=== PATIENT | male | born 1990 | race Hispanic/Latino ===

== ENCOUNTER → 2023-07-27 08:38 | Outpatient (REF) | payer OTHER, SELFPAY ==
[2023-07-27 09:53] LABS: ALT (SGPT) 49 U/L (0-50); AST (SGOT) 32 U/L (17-59); Albumin 4.4 g/dl (3.5-5.0); Alkaline Phosphatase 105 U/L (38-126); Blood Urea Nitrogen 16 mg/dl (9-20); Calcium 9.6 mg/dl (8.4-10.2); Carbon Dioxide 27 mmol/L (22-30); Chloride 102 mmol/L (98-107); Glucose 161 mg/dl (70-99); Potassium 4.2 mmol/L (3.5-5.1); Sodium 139 mmol/L (135-145); Total Bilirubin 0.7 mg/dl (0.2-1.3); Total Protein 7.3 g/dl (6.3-8.2); eGFR > 60.00
[2023-07-27 10:25] LABS: Microalbumin/creatinine Ratio 9.6 mg/g
[2023-07-27 12:23] LABS: Glycohemoglobin (HgbA1c) 8.5 % (4.0-5.6)
== END ==
LOC: REG 08:38
PROVIDERS: ATTENDING PHYSICIAN Nurse Practitioner Adult Health
DX: R80.9 Proteinuria, unspecified (principal); E11.9 Type 2 diabetes mellitus without complications
CPT/HCPCS: 80053; 82043; 82570; 83036

== ENCOUNTER → 2024-02-05 08:09 | Outpatient (REF) | payer OTHER, SELFPAY ==
[2024-02-05 09:31] LABS: ALT (SGPT) 43 U/L (0-50); AST (SGOT) 35 U/L (17-59); Albumin 4.3 g/dl (3.5-5.0); Alkaline Phosphatase 122 U/L (38-126); Blood Urea Nitrogen 19 mg/dl (9-20); Calcium 9.6 mg/dl (8.4-10.2); Carbon Dioxide 26 mmol/L (22-30); Chloride 101 mmol/L (98-107); Glucose 222 mg/dl (70-99); HDL Cholesterol 31 mg/dl; Potassium 4.3 mmol/L (3.5-5.1); Sodium 141 mmol/L (135-145); Total Bilirubin 0.5 mg/dl (0.2-1.3); Total Cholesterol 203 mg/dl (50-199); Total Protein 7.1 g/dl (6.3-8.2); eGFR > 60.00
[2024-02-05 09:32] LABS: Triglyceride > 400 mg/dl (10-149)
[2024-02-05 09:38] LABS: Glycohemoglobin (HgbA1c) 7.4 % (4.0-5.6)
[2024-02-05 09:57] LABS: LDL Cholesterol, Direct 99 mg/dl
== END ==
LOC: REG 08:09
PROVIDERS: ATTENDING PHYSICIAN Nurse Practitioner Adult Health
DX: E11.9 Type 2 diabetes mellitus without complications (principal); E78.2 Mixed hyperlipidemia
CPT/HCPCS: 36415; 80053; 80061; 83036; 83721

== ENCOUNTER → 2024-06-16 07:34 | Outpatient (REF) | payer OTHER, SELFPAY ==
[2024-06-16 08:47] LABS: ALT (SGPT) 50 U/L (0-50); AST (SGOT) 32 U/L (17-59); Albumin 4.6 g/dl (3.5-5.0); Alkaline Phosphatase 98 U/L (38-126); Blood Urea Nitrogen 16 mg/dl (9-20); Calcium 9.9 mg/dl (8.4-10.2); Carbon Dioxide 29 mmol/L (22-30); Chloride 97 mmol/L (98-107); Glucose 163 mg/dl (70-99); HDL Cholesterol 36 mg/dl; LDL Cholesterol, Calculated 136 mg/dl; Potassium 4.3 mmol/L (3.5-5.1); Sodium 139 mmol/L (135-145); Total Bilirubin 0.8 mg/dl (0.2-1.3); Total Cholesterol 216 mg/dl (50-199); Total Protein 7.5 g/dl (6.3-8.2); Triglyceride 220 mg/dl (10-149); Very Low Density Lipoprotein 44 mg/dl (0-30); eGFR > 60.00
[2024-06-16 09:14] LABS: Microalbumin/creatinine Ratio 17.9 mg/g
[2024-06-16 10:00] LABS: Glycohemoglobin (HgbA1c) 9.3 % (4.0-5.6)
== END ==
LOC: CLINIC 07:34
PROVIDERS: ATTENDING PHYSICIAN Nurse Practitioner Adult Health
DX: E11.9 Type 2 diabetes mellitus without complications (principal); R80.9 Proteinuria, unspecified; E78.2 Mixed hyperlipidemia
CPT/HCPCS: 36415; 80053; 80061; 82043; 82570; 83036